=== PATIENT | male | born 1980 | race Caucasian/White ===

== ENCOUNTER 2020-04-23 08:24 | Emergency (ER) | payer SELFPAY ==
--- NOTE | 2020-04-23 09:32 | ER ---
Nurse's Notes [facility] Name: Itz Bean Age: 39 yrs Sex: Male : 1980 Arrival Date: 04/23/2020 Time: 08:28 Bed 20 Private MD: Diagnosis: Pain in left elbow Presentation: 04/23 08:35 Chief complaint: Left elbow pain that radiates to left upper arm and shoulder x 2 hb weeks. Denies injuiry. Coronavirus screen: At this time, the client does not indicate any symptoms associated with coronavirus-19. Ebola Screen: No symptoms or risks identified at this time. Initial Sepsis Screen: Does the patient meet any 2 criteria? No. Patient's initial sepsis screen is negative. Does the patient have a suspected source of infection? No. Patient's initial sepsis screen is negative. Risk Assessment: Do you want to hurt yourself or someone else? Patient reports no desire to harm self or others. Onset of symptoms was April 07, 2020. 08:35 Method Of Arrival: Ambulatory hb 08:35 Acuity: LUANA 4 hb Triage Assessment: 08:40 General: Appears in no apparent distress. uncomfortable, Behavior is cooperative, bp appropriate for age, anxious. Pain: Complains of pain in left elbow. EENT: No deficits noted. Neuro: No deficits noted. Cardiovascular: No deficits noted. Respiratory: No deficits noted. GI: No signs and/or symptoms were reported involving the gastrointestinal system. : No signs and/or symptoms were reported regarding the genitourinary system. Derm: No signs and/or symptoms reported regarding the dermatologic system. Musculoskeletal: Circulation, motion, and sensation intact. Range of motion: intact in all extremities, Reports pain in left elbow. Injury Description: Bruise sustained to left elbow. 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 - Social history:: Smoking status: Patient reports the use of cigarette tobacco products, smokes one pack cigarettes per day. Screenin:40 Abuse screen: Denies threats or abuse. Denies injuries from another. Nutritional bp screening: No deficits noted. Tuberculosis screening: No symptoms or risk factors identified. Fall Risk None identified. Assessment: 08:40 General: SEE TRIAGE NOTE. bp 09:48 Reassessment: PT D/C HOME AMBULATORY, DX WITH MUSCULOSKELETAL PAIN. bp Vital Signs: 08:35 BP 125 / 84; Pulse 88; Resp 16; Temp 97.6; Pulse Ox 100% on R/A; Weight 72.57 kg; hb Height 5 ft. 10 in. (177.80 cm); Pain 8/10; 09:49 BP 127 / 81; Pulse 79; Resp 17; Temp 97.8; Pulse Ox 100% ; bp 08:35 Body Mass Index 22.96 (72.57 kg, 177.80 cm) hb ED Course: 08:28 Patient arrived in ED. mr 08:36 Triage completed. hb 08:36 Arm band placed on. hb 08:40 Patient has correct armband on for positive identification. Bed in low position. Call bp light in reach. Side rails up X2. 09:08 Patient's name was called from ER lobby. No response. hb 09:22 [facility]C [facility]. kb 09:22 Will Cooper MD is Attending Physician. kb 09:26 Elroy Carbone, GIL is Primary Nurse. bp 09:50 No provider procedures requiring assistance completed. Patient did not have IV access bp during this emergency room visit. Administered Medications: 09:40 Drug: TORadol 30 mg Route: IM; Site: left deltoid; bp 09:48 Follow up: Response: Pain is decreased bp Outcome: 09:30 Discharge ordered by MD. kb 09:50 Discharged to home ambulatory. bp 09:50 Condition: stable 09:50 Discharge instructions given to patient, Instructed on discharge instructions, follow up and referral plans. medication usage, Demonstrated understanding of instructions, follow-up care, medications, Prescriptions given X 2. 09:51 Patient left the ED. bp Signatures: Alissa Rojas FNP-C FNP-Ckb Atiya Monge DunhamBetina, RN RN hb Elroy Carbone, RN RN bp
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
[2020-04-23 09:57] VITALS: O2SAT 100
[2020-04-23] MEDS ORDERED: KETOROLAC 30 MG/ML INJ ONE (09:57)
[2020-04-23 09:58] VITALS: BP 127/81; TEMP 97.8
== END 2020-04-23 09:51 | disposition home or self-care (01) ==
LOC: ER 08:24
DX: M25.522 Pain in left elbow (principal); F17.210 Nicotine dependence, cigarettes, uncomplicated
CPT/HCPCS: 96372; 99283